=== PATIENT | female | born 1980 | race Caucasian/White ===

== ENCOUNTER → 2023-12-28 09:59 | Outpatient (REF) | payer OTHER, SELFPAY | LOC: HWWDC 09:59 | PROVIDERS: ATTENDING PHYSICIAN Family Medicine | DX: Z12.31 Encounter for screening mammogram for malignant neoplasm of breast (principal) | CPT/HCPCS: 77063; 77067 ==

== ENCOUNTER → 2024-06-08 08:59 | Outpatient (REF) | payer OTHER, SELFPAY | LOC: WDC 08:59 | PROVIDERS: ATTENDING PHYSICIAN Nurse Practitioner Family; FAMILY PHYSICIAN Family Medicine | DX: N63.21 Unspecified lump in the left breast, upper outer quadrant (principal) | CPT/HCPCS: 76642; 77061; 77065 ==

== ENCOUNTER 2025-01-29 11:34 | Emergency (ER) | payer OTHER, SELFPAY ==
[2025-01-29 11:37] VITALS: BP 120/83
--- NOTE | 2025-01-29 12:07 | ED.MUSCINJ ---
HPI-Injury
General
Chief Complaint: Musculo-Skeletal Complaint
Source: patient
Exam Limitations: none
Time Seen by Provider: 01/29/25 11:55
Nursing documentation reviewed up to this point in time: agreed with
History of Present Illness-Injury
Initial Injury comments:
44-year-old female with history of NIDDM presents an hour after stepping on a piece of vacuum carbon lamp cleaner at home and twisting her right knee. She felt pain in medial aspect of the knee immediately and now pain is starting to radiate up the thigh to
the hip. She has taken nothing for pain. She has been able to ambulate but with pain
Past History
Past History
ED Past Medical History: NIDDM
ED Past Surgical History: None
Social History
Tobacco: Non-smoker
Alcohol: Occasional
Personal:
Living: with family
Employment: Employed
Review of Systems
Review of Systems
Allergies reviewed?: Yes
All Other Systems: ROS reviewed and negative except as documented in HPI and ROS
Musculoskeletal: Reports other (Pain right knee, medial aspect)
Skin: Reports no symptoms
Musculoskeletal Injury Exam
Musculoskeletal Injury Exam
Right knee:
Pain with Movement?: Moderate
Tender to palpation?: Moderate (Medial aspect of knee)
Soft tissue swelling?: Mild
Strain- Sprain- Tear (Connective tissue injury)?: Moderate
Crepitus with movement?: No
Joint instability?: No
Malalignment/deformity?: No
Range of motion: Limited
Distal skin color and temperature: normal-warm & good color
Capillary Refill: normal
Normal distal neurovascular exam?: Yes
Phy Exam
Physical Exam
Physical Exam:
PHYSICAL EXAMINATION:
General: no apparent distress, not acutely ill
Neuro: alert and oriented.
Psychiatric: well kept. interactive and cooperative
Musculoskeletal: Moves with ease
Skin: Warm, pink.
Injury Course
Orders/Labs/Results
Orders:
Orders
01/29/25 12:06
Ibuprofen [Motrin] 600 mg PO NOW STA
Knee, Right 4 or More Views [CR Knee- Right 4 Or More View*] Urgent
Comment:
Reason For Exam: pain medially after twisting
01/29/25 13:24
Carmine Wrap Right-Treatment ONCE
MDM/Problems Addressed
Differential Diagnosis Includes:
Sprain right knee, fracture
MDM/Problems Addressed:
44-year-old female with history of NIDDM presents an hour after stepping on a piece of vacuum carbon lamp cleaner at home and twisting her right knee. She felt pain in medial aspect of the knee immediately and now pain is starting to radiate up the thigh to
the hip. She has taken nothing for pain. She has been able to ambulate but with pain
X-ray right knee: DJD, no acute abnormality, no effusion
Patient states she has been ambulating quite well with her cane.
She has short stature and large thighs and a knee immobilizer will not fit her
Carmine wrap applied
Referred to orthopedics for follow-up as needed
*Critical Care Note
Total Time (30-74mins, 75-104mins- exclusive of procedures): Not Applicable
ED Attending Note
-
Portions of this chart may have been created with voice recognition software.� Occasional wrong word or��sound alike� substitutions may have occurred due to the inherent limitations of voice recognition software.
Discharge Plan
Departure
Patient Disposition: Home (Routine Discharge)
Date of Disposition: 01/29/25
Time of Disposition: 13:23
Patient with high blood pressure during this ER visit?: No
Condition: Good
Discharge Problem:
Soft tissue injury of right knee
Instructions: Knee Sprain (DC), Using Cold for Pain
Prescriptions:
No Action
PNV,calcium 48-boct-cvmuu acid [ Vitamin Plus Low Iron] 1 TABLET tablet
1 tab PO DAILY
ibuprofen 600 MG tablet
600 mg PO Q4HPRN PRN (Reason: moderate pain/cramps) 0RF
Referrals:
Philippe Mujica MD [Active, Orthopedics] - As needed
Caterina Tijerina DO [Family Provider, Family Practice]
Activity Restrictions/Additional Instructions:
As we discussed, ibuprofen 600 mg, with food, every 6 hours as needed for pain.
Wear the Carmine wrap as needed for comfort, support.
Use your cane as needed
See the orthopedic doctor if you are not a lot better in 1 week or not 100% better in 3 weeks.
Interventions
Interventions:
*Risk Screen - Suicide Last Done: 01/29/25 11:39
*General Assessment Last Done: 01/29/25 13:00
*Neglect/Abuse Screening Last Done: 01/29/25 11:39
*Nursing Disposition Last Done: 01/29/25 13:50
ED-Musculoskeletal Assessment Last Done: 01/29/25 13:00
Discharge Date and Time
Discharge Date/Time: 01/29/25 13:51
Print Language: GREENLANDIC
[2025-01-29] MEDS: MOTRIN 600 MG PO (12:22)
[2025-01-29 13:50] VITALS: BP 124/68
== END 2025-01-29 13:51 | disposition home or self-care (01) ==
LOC: EMR 11:34
PROVIDERS: EMERGENCY PHYSICIAN Emergency Medicine; FAMILY PHYSICIAN Family Medicine
DX: S89.91XA Unspecified injury of right lower leg, initial encounter (principal); X50.1XXA Overexertion from prolonged static or awkward postures, initial encounter; E11.9 Type 2 diabetes mellitus without complications
CPT/HCPCS: 99283; 73564